=== PATIENT | female | born 1990 | race Two or more races ===

== ENCOUNTER 2020-08-24 19:13 | Inpatient (IN) | payer MEDICAID ==
[~2020-08-24] VITALS: Ht 154.9 cm; Wt 62.9 kg
[2020-08-24] MEDS ORDERED: ARIP15TA2 PO (20:50)
[2020-08-24] MEDS ORDERED: METF-960 PO (20:50)
[2020-08-24] MEDS ORDERED: SERT50TA12 PO (20:50)
[2020-08-24] MEDS ORDERED: SPIR50 PO (20:51)
[2020-08-24] MEDS ORDERED: TUBERCULIN, PURIFIED PROTEIN DERIVATIVE 5 TU/0.1 ML SYRINGE ID ONE (21:15)
[2020-08-24] MEDS ORDERED: LOPERAMIDE HCL 2 MG CAPSULE PO PRN (21:15)
[2020-08-24] MEDS ORDERED: ZOLPIDEM TARTRATE 10 MG TABLET PO PRN (21:15)
[2020-08-24] MEDS ORDERED: ACETAMINOPHEN 325 MG TABLET PO PRN (21:15)
[2020-08-24] MEDS ORDERED: PROMETHAZINE HCL 25 MG TABLET PO PRN (21:15)
[2020-08-24] MEDS ORDERED: OLANZapine 5 MG RAPDIS TABLET PO PRN (21:15)
[2020-08-24] MEDS ORDERED: MAGNESIUM HYDROXIDE SUSPENSION 30 ML UDCUP PO PRN (21:15)
[2020-08-24] MEDS ORDERED: HydrOXYzine PAMOATE 50 MG CAPSULE PO PRN (21:15)
[2020-08-24] MEDS ORDERED: MAG HYDROX/AL HYDROX/SIMETH ES 30 ML SUSPENSION UDCUP PO PRN (21:15)
[2020-08-24] MEDS ORDERED: GuaiFENesin/D-METHORPHAN [SUGAR-FREE] 200-20MG/10 ML SYRUP UDCUP PO PRN (21:15)
[2020-08-25] MEDS: SERTRALINE HCL 50 MG TABLET PO SCH (11:02)
[2020-08-25] MEDS: FOLIC ACID 1 MG TABLET PO SCH (11:04)
[2020-08-25] MEDS: THIAMINE 100 MG TABLET PO SCH ×2 (11:04→16:39)
[2020-08-25] MEDS: OMEGA-3/DHA/EPA/FISH OIL 1,000 MG CAPSULE PO SCH (11:05)
[2020-08-25] MEDS: MULTIVITAMINS WITH MINERALS, THERAPEUTIC TABLET PO SCH (11:05)
[2020-08-25] MEDS: NALTREXONE HCL 50 MG TABLET PO SCH (11:05)
[2020-08-25 12:44] VITALS: BP 113/68
[2020-08-25 12:45] VITALS: BP 113/68
[2020-08-25] MEDS ORDERED: INSULIN LISPRO 100 UNITS/ML SQ PRN (12:45)
[2020-08-25] MEDS ORDERED: GLUCAGON,HUMAN RECOMBINANT 1 MG VIAL IM PRN (12:45)
[2020-08-25 16:26] VITALS: BP 127/73
[2020-08-25] MEDS: MetFORMIN HCL 500 MG TABLET PO SCH (16:39)
[2020-08-25 16:56] LABS: GLUCOMETER DEV NAME(LOC) BV2S.; GLUCOSE,POINT OF CARE 84 MG/DL (70-110)
[2020-08-25] MEDS: LORazepam 2 MG TABLET PO PRN (18:12)
[2020-08-25] MEDS: MELATONIN 5 MG TABLET PO SCH (20:38)
[2020-08-25] MEDS ORDERED: OLANZapine 5 MG RAPDIS TABLET PO SCH (21:00)
[2020-08-26 00:20] VITALS: BP 123/81
[2020-08-26 08:16] VITALS: BP 137/83
[2020-08-26 08:35] LABS: GLUCOMETER DEV NAME(LOC) BV2S.; GLUCOSE,POINT OF CARE 70 MG/DL (70-110)
[2020-08-26] MEDS: OMEGA-3/DHA/EPA/FISH OIL 1,000 MG CAPSULE PO SCH (09:20)
[2020-08-26] MEDS: FOLIC ACID 1 MG TABLET PO SCH (09:20)
[2020-08-26] MEDS: NALTREXONE HCL 50 MG TABLET PO SCH (09:20)
[2020-08-26] MEDS: THIAMINE 100 MG TABLET PO SCH ×2 (09:20→16:20)
[2020-08-26] MEDS: SERTRALINE HCL 50 MG TABLET PO SCH (09:20)
[2020-08-26] MEDS: MULTIVITAMINS WITH MINERALS, THERAPEUTIC TABLET PO SCH (09:20)
[2020-08-26 14:00] LABS: APPEARANCE,URINE TURBID (CLEAR); GLUCOSE, URINE (UA) NEGATIVE (NEGATIVE); KETONES,URINE 40 mg/dL (NEGATIVE); NITRATE,URINE NEGATIVE (NEGATIVE); OCCULT BLOOD,URINE NEGATIVE (NEGATIVE); PROTEIN,URINE NEGATIVE (NEGATIVE)
[2020-08-26 14:05] LABS: AMPHET/METH SCREEN,URINE NEGATIVE (NEGATIVE); BARBITURATE SCREEN, URINE NEGATIVE (NEGATIVE); BENZODIAZEPINES SCREEN,URINE NEGATIVE (NEGATIVE); CANNABINOID SCREEN,URINE NEGATIVE (NEGATIVE); COCAINE SCREEN,URINE NEGATIVE (NEGATIVE); METHADONE SCREEN, URINE NEGATIVE (NEGATIVE); OPIATE SCREEN,URINE NEGATIVE (NEGATIVE)
[2020-08-26 14:10] LABS: PHENCYCLIDINE SCREEN,URINE NEGATIVE (NEGATIVE)
[2020-08-26 14:41] LABS: BILIRUBIN,URINE PRELIM. POSITIVE (NEGATIVE)
[2020-08-26 14:42] LABS: BACTERIA,URINE None Seen /HPF (None Seen); CALCIUM OXALATE CRYSTALS,UR Moderate /LPF (None Seen); LEUKOCYTE ESTERASE ,URINE TRACE (NEGATIVE); RBC,URINE None Seen /HPF (0-2); WBC,URINE 0-2 /HPF (0-5)
[2020-08-26 14:43] LABS: AMORPHOUS SEDIMENT,UR Many /LPF (None Seen)
[2020-08-26] MEDS ORDERED: MELA5TAB3 PO (16:06)
[2020-08-26] MEDS ORDERED: NALT50TA PO (16:06)
[2020-08-26] MEDS ORDERED: ARIP15TA2 PO (16:06)
[2020-08-26] MEDS ORDERED: OMEG-135 PO (16:06)
[2020-08-26] MEDS ORDERED: SERT50TA12 PO (16:06)
[2020-08-26] MEDS ORDERED: ARIPiprazole 5 MG TABLET PO ONE (16:15)
[2020-08-26] MEDS: MetFORMIN HCL 500 MG TABLET PO SCH (16:20)
[2020-08-26 16:41] LABS: GLUCOMETER DEV NAME(LOC) BV2S.; GLUCOSE,POINT OF CARE 122 MG/DL (70-110)
[2020-08-26] MEDS: LORazepam 2 MG TABLET PO PRN (17:28)
[2020-08-26 17:35] VITALS: BP 134/74
[2020-08-26] MEDS: MELATONIN 5 MG TABLET PO SCH (21:19)
[2020-08-27 03:06] VITALS: BP 146/85
[2020-08-27 06:25] LABS: GLUCOMETER DEV NAME(LOC) BV2S.; GLUCOSE,POINT OF CARE 82 MG/DL (70-110)
[2020-08-27] MEDS: FOLIC ACID 1 MG TABLET PO SCH (08:19)
[2020-08-27] MEDS: OMEGA-3/DHA/EPA/FISH OIL 1,000 MG CAPSULE PO SCH (08:19)
[2020-08-27] MEDS: MULTIVITAMINS WITH MINERALS, THERAPEUTIC TABLET PO SCH (08:19)
[2020-08-27] MEDS: THIAMINE 100 MG TABLET PO SCH (08:19)
[2020-08-27] MEDS: NALTREXONE HCL 50 MG TABLET PO SCH (08:19)
[2020-08-27] MEDS: SERTRALINE HCL 50 MG TABLET PO SCH (08:19)
[2020-08-27 08:44] VITALS: BP 104/69
[2020-08-27] MEDS ORDERED: ARIPiprazole 15 MG TABLET PO SCH (09:00)
[2020-08-27 16:21] VITALS: BP 114/77
== END 2020-08-27 16:10 | disposition home or self-care (01) | DRG 750 ==
LOC: B2S 08-25 07:00
PROVIDERS: ADMIT Psychiatry & Neurology Psychiatry; ATTEND Psychiatry & Neurology Psychiatry
DX: F25.9 Schizoaffective disorder, unspecified (principal); E11.9 Type 2 diabetes mellitus without complications; Z88.8 Allergy status to other drugs, medicaments and biological substances; Z88.1 Allergy status to other antibiotic agents; Z55.9 Problems related to education and literacy, unspecified; Z59.9 Problem related to housing and economic circumstances, unspecified; Z65.3 Problems related to other legal circumstances; G93.41 Metabolic encephalopathy; F43.10 Post-traumatic stress disorder, unspecified
CPT/HCPCS: 80307

== ENCOUNTER 2022-11-05 12:18 | Emergency (ER) | payer MEDICAID ==
[~2022-11-05] VITALS: Ht 154.9 cm; Wt 77.3 kg
[~2022-11-05 12:18] MED LIST: ARIP15TA27 PO; MELA5TAB40 PO; METF-1211 PO; NALT50TA PO; OMEG-135 PO; SERT-439 PO
[2022-11-05] MEDS ORDERED: SERT-158 PO (12:32)
[2022-11-05] MEDS ORDERED: BUSP5TAB20 PO (12:32)
[2022-11-05 12:37] LABS: COVID AG,FIA SOURCE NASAL SWAB
[2022-11-05 13:03] LABS: INFLUENZA TYPE A NEGATIVE FOR TYPE A (NEGATIVE); INFLUENZA TYPE B NEGATIVE FOR TYPE B (NEGATIVE)
[2022-11-05] MEDS ORDERED: IBUPROFEN 600 MG TABLET PO ONE (14:45)
[2022-11-05] MEDS ORDERED: BENZ-227 PO (15:45)
[2022-11-05 15:54] VITALS: BP 96/57
== END 2022-11-05 15:55 | disposition home or self-care (01) ==
LOC: EMS 12:26
DX: J40 Bronchitis, not specified as acute or chronic (principal); E11.9 Type 2 diabetes mellitus without complications; Z20.822 Contact with and (suspected) exposure to COVID-19; Z88.1 Allergy status to other antibiotic agents; Z88.8 Allergy status to other drugs, medicaments and biological substances
CPT/HCPCS: 71045; 82962; 87430; 87804; 99284

== ENCOUNTER 2023-01-07 15:15 | Emergency (ER) | payer MEDICAID ==
[~2023-01-07] VITALS: Ht 157.5 cm; Wt 81.8 kg
[~2023-01-07 15:15] MED LIST changes: +BENZ-227 PO; +BUSP5TAB20 PO; +SERT-158 PO
[2023-01-07] MEDS ORDERED: SODIUM CHLORIDE 0.9% 1,000 ML IV ONE (16:15)
[2023-01-07 16:49] LABS: BASOPHILS % (AUTO) 0.3 % (0.0-2.0); EOSINOPHILS % (AUTO) 0 % (1.0-6.0); HEMATOCRIT 43.7 % (36-46); HEMOGLOBIN 14.6 g/dL (12.0-16.0); LYMPHOCYTES # (AUTO) 0.9 K/uL (1.0-4.8); LYMPHOCYTES % (AUTO) 11.3 % (22.0-44.0); MEAN CORPUSCULAR HEMOGLOBIN 28.5 pg (26.0-34.0); MEAN CORPUSCULAR HGB CONC 33.5 G/dL (31.0-37.0); MEAN CORPUSCULAR VOLUME 85 fL (80-100); MONOCYTES # (AUTO) 0.3 K/uL (0.1-1.0); MONOCYTES % (AUTO) 4.2 % (2.0-9.0); NEUTROPHILS # (AUTO) 6.6 K/uL (1.8-7.7); NEUTROPHILS % (AUTO) 84.2 % (40.0-70.0); PLATELET COUNT (AUTO) 249 K/uL (150-450); RED BLOOD CELL COUNT(AUTO) 5.13 MIL/uL (4.00-5.20); RED CELL DISTRIBUTION WIDTH 13.7 % (11.5-14.5)
[2023-01-07 16:54] LABS: APPEARANCE,URINE HAZY (CLEAR); BILIRUBIN,URINE NEGATIVE (NEGATIVE); GLUCOSE, URINE (UA) NEGATIVE (NEGATIVE); KETONES,URINE NEGATIVE (NEGATIVE); LEUKOCYTE ESTERASE ,URINE TRACE (NEGATIVE); NITRATE,URINE NEGATIVE (NEGATIVE); OCCULT BLOOD,URINE SMALL (NEGATIVE); PROTEIN,URINE 30-70 mg/dL (NEGATIVE); SPECIFIC GRAVITIY, URINE 1.028 (1.003-1.030); UROBILINOGEN,URINE <=1.0 mg/dL (<=1.0)
[2023-01-07 16:58] LABS: ANION GAP 12 mmol/L (8-16); CALCIUM, TOTAL 9.5 mg/dL (8.8-10.5); CARBON DIOXIDE 24 mmol/L (22-29); CHLORIDE 99 mmol/L (98-107); GLOMERULAR FILTR. RATE CALC > 60 mL/min (>60); GLUCOSE,RANDOM 101 mg/dL (70-110); POTASSIUM 3.6 mmol/L (3.5-5.1); SODIUM SERUM 135 mmol/L (136-145)
[2023-01-07 17:02] LABS: BACTERIA,URINE Few /HPF (None Seen); SQUAMOUS EPITHELIAL CELL,UR Few /LPF (None Seen)
[2023-01-07 17:13] LABS: ALANINE AMINOTRANSFERASE 20 U/L (12-78); ALBUMIN 3.6 g/dL (3.4-5.0); ALKALINE PHOSPHATASE 95 U/L (46-116); ASPARTATE AMINOTRANSFERASE 20 U/L (15-37); BILIRUBIN,TOTAL 0.9 mg/dL (0.1-1.0); HCG,QUANTITATIVE < 1 mIU/mL (0-6); LIPASE 54 U/L (73-393); THYROID STIMULATING HORMONE 1.57 uIU/mL (0.36-3.74); TOTAL PROTEIN, SERUM 8.2 g/dL (6.4-8.2)
[2023-01-07] MEDS ORDERED: ONDANSETRON HCL 4 MG TABLET PO ONE (17:30)
[2023-01-07] MEDS ORDERED: ARIP10642 IM (17:33)
[2023-01-07] MEDS ORDERED: SERT-440 PO (17:33)
[2023-01-07] MEDS ORDERED: ATOR20TA65 PO (17:33)
[2023-01-07] MEDS ORDERED: TRAZ-257 PO (17:33)
[2023-01-07] MEDS ORDERED: BUSP10TA3 PO (17:34)
[2023-01-07 18:25] VITALS: BP 114/68
== END 2023-01-07 19:00 | disposition home or self-care (01) ==
LOC: EMS 15:15
DX: K52.9 Noninfective gastroenteritis and colitis, unspecified (principal); E11.9 Type 2 diabetes mellitus without complications; Z88.0 Allergy status to penicillin; Z88.1 Allergy status to other antibiotic agents; Z88.8 Allergy status to other drugs, medicaments and biological substances
CPT/HCPCS: 99283; 80053; 81001; 83690; 84443; 84702; 85025; 36415; Q0162

== ENCOUNTER 2023-01-27 12:18 | Emergency (ER) | payer MEDICAID ==
[~2023-01-27] VITALS: Ht 154.9 cm; Wt 77.3 kg
[~2023-01-27 12:18] MED LIST changes: +ARIP10642 IM; +ATOR20TA65 PO; -BENZ-227 PO; +BUSP10TA3 PO; -BUSP5TAB20 PO; -SERT-158 PO; -SERT-439 PO; +SERT-440 PO; +TRAZ-257 PO
[2023-01-27 12:27] VITALS: BP 100/56
[2023-01-27 15:30] LABS: COVID AG,FIA SOURCE NASAL SWAB
[2023-01-27 15:34] LABS: AMPHET/METH SCREEN,URINE NEGATIVE (NEGATIVE); BARBITURATE SCREEN, URINE NEGATIVE (NEGATIVE); BENZODIAZEPINES SCREEN,URINE NEGATIVE (NEGATIVE); CANNABINOID SCREEN,URINE NEGATIVE (NEGATIVE); COCAINE SCREEN,URINE NEGATIVE (NEGATIVE); METHADONE SCREEN, URINE NEGATIVE (NEGATIVE); OPIATE SCREEN,URINE NEGATIVE (NEGATIVE); PHENCYCLIDINE SCREEN,URINE NEGATIVE (NEGATIVE)
== END 2023-01-27 16:21 | disposition home or self-care (01) ==
LOC: EMS 12:18
DX: F32.A Depression, unspecified (principal); R45.851 Suicidal ideations; F41.9 Anxiety disorder, unspecified; E11.9 Type 2 diabetes mellitus without complications; Z88.8 Allergy status to other drugs, medicaments and biological substances; Z88.1 Allergy status to other antibiotic agents; Z20.822 Contact with and (suspected) exposure to COVID-19
CPT/HCPCS: 80307; 82962; 99285

== ENCOUNTER 2023-02-08 18:40 | Emergency (ER) | payer MEDICAID ==
[~2023-02-08] VITALS: Ht 154.9 cm; Wt 82.7 kg
[2023-02-08 20:50] LABS: COVID AG,FIA SOURCE NASAL SWAB
[2023-02-08 21:01] LABS: BASOPHILS % (AUTO) 0.9 % (0.0-2.0); EOSINOPHILS % (AUTO) 2.5 % (1.0-6.0); HEMATOCRIT 40.3 % (36-46); HEMOGLOBIN 13.6 g/dL (12.0-16.0); LYMPHOCYTES # (AUTO) 3.1 K/uL (1.0-4.8); LYMPHOCYTES % (AUTO) 39.3 % (22.0-44.0); MEAN CORPUSCULAR HEMOGLOBIN 28.8 pg (26.0-34.0); MEAN CORPUSCULAR HGB CONC 33.9 G/dL (31.0-37.0); MEAN CORPUSCULAR VOLUME 85 fL (80-100); MONOCYTES # (AUTO) 0.5 K/uL (0.1-1.0); MONOCYTES % (AUTO) 6.8 % (2.0-9.0); NEUTROPHILS % (AUTO) 50.5 % (40.0-70.0); PLATELET COUNT (AUTO) 346 K/uL (150-450); RED BLOOD CELL COUNT(AUTO) 4.73 MIL/uL (4.00-5.20); RED CELL DISTRIBUTION WIDTH 13.7 % (11.5-14.5)
[2023-02-08 21:05] LABS: ANION GAP 7 mmol/L (8-16); CALCIUM, TOTAL 9.3 mg/dL (8.8-10.5); CARBON DIOXIDE 29 mmol/L (22-29); CHLORIDE 108 mmol/L (98-107); CREATININE 0.86 mg/dL (0.60-1.30); GLOMERULAR FILTR. RATE CALC > 60 mL/min (>60); GLUCOSE,RANDOM 87 mg/dL (70-110); POTASSIUM 3.9 mmol/L (3.5-5.1); SODIUM SERUM 144 mmol/L (136-145)
[2023-02-08 21:12] LABS: ALANINE AMINOTRANSFERASE 19 U/L (12-78); ALBUMIN 3.4 g/dL (3.4-5.0); ALKALINE PHOSPHATASE 114 U/L (46-116); ASPARTATE AMINOTRANSFERASE 17 U/L (15-37); BILIRUBIN,TOTAL 0.5 mg/dL (0.1-1.0); TOTAL PROTEIN, SERUM 7.6 g/dL (6.4-8.2)
[2023-02-08 22:11] VITALS: BP 123/73; PULSE 78; RESP 18; TEMP 97.3
== END 2023-02-08 22:11 | disposition home or self-care (01) ==
LOC: EMS 18:41
DX: F32.A Depression, unspecified (principal); F41.9 Anxiety disorder, unspecified; E11.9 Type 2 diabetes mellitus without complications; Z88.1 Allergy status to other antibiotic agents; Z88.8 Allergy status to other drugs, medicaments and biological substances; Z20.822 Contact with and (suspected) exposure to COVID-19
CPT/HCPCS: 99284; 87426; 80053; 85025; G0480